=== PATIENT | male | born 1950 | race Caucasian/White ===

== ENCOUNTER → 2019-08-18 | Outpatient (CLI) | payer MEDICARE ==
--- NOTE | 2019-08-18 16:46 | KCIC ---
Study: MRI of the right hip without contrast INDICATION: Right hip pain. COMPARISON: None. TECHNIQUE: Multiplanar MR imaging of the right hip performed without the use of intravenous or intra-articular contrast. FINDINGS: Degraded study secondary to motion, particularly the axial T2 sequence. Bones/hip: No acute fracture or aggressive marrow signal abnormality. Incompletely evaluated discogenic arthrosis at L5-S1. Not well evaluated but suspected mild to moderate arthrosis at the pubic symphysis without obvious parasymphyseal edema. Suspected mild arthrosis at the sacroiliac joints. Dedicated imaging of the right hip is without advanced joint space narrowing or subchondral edema. Labrum/cartilage: Only seen on the large dyopr-mq-ptda sequence is extensive degenerative tearing of the left labrum. Less pronounced degenerative labral tearing on the right with scattered small paralabral cysts. Chondral loss at the superior aspect of the joint space with a personnel representative 4 mm chondral defect seen on image 13 series 7. Ligamentum teres: Not well evaluated due to motion. Greater trochanteric bursa: Edema signal along the right and left greater trochanteric bursa without fluid distention to suggest bursitis. Musculotendinous: Gluteus medius and minimus tendinosis and potential superimposed low-grade partial tearing. Bilateral common hamstring origin tendinosis. Low-grade partial tearing as well on the left more so than right, image 8 series 3. Intact iliopsoas and rectus femoris. Narrowing of the ischiofemoral space measuring approximately 6 mm on image 30 series 4 and there may be mild edema of the quadratus femoris which also exhibits fatty atrophy. Miscellaneous: Small bilateral hip effusions. No pericapsular edema. IMPRESSION: 1. No acute fracture. No advanced arthrosis at either hip. 2. Multifocal degenerative labral tearing on the right with a few associated paralabral cyst. More advanced degenerative labral tearing partially evaluated on the left. Chondral loss at the superior joint space on the right without subchondral edema. 3. Potential mild edema of the quadratus femoris which also exhibits fatty atrophy as it traverses through a narrowed ischiofemoral space measured at 6 mm. Recommend correlation for ischiofemoral impingement. 4. Small bilateral hip joint effusions without pericapsular edema or overt synovitis. 5. Additional chronic observations as above. Electronically signed by: SHYLA MANRIQUEZ MD (08/18/2019 4:43 PM) [id number]
== END | disposition home or self-care (01) ==
LOC: KCIC MRI 09:15
PROVIDERS: ATTEND Family Medicine
DX: S76.011A Strain of muscle, fascia and tendon of right hip, initial encounter (principal); S73.191A Other sprain of right hip, initial encounter; M25.452 Effusion, left hip; M25.451 Effusion, right hip; X58.XXXA Exposure to other specified factors, initial encounter; Y93.89 Activity, other specified; Y92.89 Other specified places as the place of occurrence of the external cause; Y99.8 Other external cause status
CPT/HCPCS: 73721

== ENCOUNTER → 2020-11-03 | Outpatient (CLI) | payer MEDICARE ==
[~2020-11-03] MED LIST: CARV6.2511 PO; CHOL-5 PO; CLOT15CR23 TP; ESOM20CA PO; LISI-517 PO; MAGN400C PO; PRED50TA PO
== END ==
LOC: LAB 10:23
PROVIDERS: ATTEND Surgery
DX: Z01.812 Encounter for preprocedural laboratory examination (principal); R51.9 Headache, unspecified; Z20.822 Contact with and (suspected) exposure to COVID-19
CPT/HCPCS: U0003

== ENCOUNTER 2020-11-08 09:14 | Day surgery (SDC) | payer MEDICARE ==
[~2020-11-08] VITALS: Ht 182.9 cm; Wt 106.0 kg
[~2020-11-08 09:14] MED LIST changes: +ACETAMINOPHEN 500 MG TABLET PO PRN; +BUPIVACAINE MPF 0.25% 30 ML VIAL. ONE; +HYDROmorphone 2 MG/ML VIAL IVP PRN; +IV RINGERS,LACTATED 1000ML 1,000 ML IV SCH; +MORPHINE SULFATE 2 MG/ML VIAL. IVP PRN; +PROCHLORPERAZINE 10 MG/2 ML VIAL. IVP PRN; +fentaNYL PF VIAL 100 MCG/2 ML VIAL IVP PRN
[2020-11-08] MEDS ORDERED: PROPOFOL 10 MG/ML (20ML) VIAL. IV ONE (10:27)
[2020-11-08] MEDS ORDERED: LIDOCAINE 2% PF 5 ML VIAL. ONE (10:27)
[2020-11-08] MEDS ORDERED: fentaNYL PF VIAL 100 MCG/2 ML VIAL ONE ×2 (10:27→12:17)
[2020-11-08] MEDS ORDERED: ONDANSETRON PF 4 MG/2 ML VIAL. ONE (10:58)
[2020-11-08] MEDS ORDERED: SEVOFLURANE 16 TO 30 MINUTES. IH ONE (10:59)
--- NOTE | 2020-11-08 11:22 | PDOC4 ---
Operative Note Operative Note Date: November 082020 at 1120 Preoperative diagnosis: Headache Postoperative diagnosis: Same Procedure: Right temporal artery biopsy Surgeon: Perez Specimen: Right temporal artery Dictation: Patient is a 69-year-old gentleman who has had severe headaches over the last several months. Procedure of temporal artery biopsy was explained to the patient detail was benefits were also discussed including bleeding infection alternatives to this procedure also discussed with patient who seemed to understand and gave a verbal written consent to have the procedure performed. Patient was taken to the operating room placed in the supine position IV sedation was initiated once patient was asleep and sedated his right temporal area was prepped and draped in usual sterile fashion was Betadine solution. An area over the temporal artery was injected with quarter percent Marcaine incision was made with 15 blade scalpel is carried down through the subcutaneous tissue using electrocautery right hemostasis the artery was visualized it was ligated proximally and distally and the specimen was removed and sent for pathology fresh. The wound was then closed in a single layer 4-0 subcuticular Monocryl Mastisol Steri-Strips and island dressing were applied. Patient tolerated procedure well was taken to recovery in stable condition all sponge instrument needle counts listed as correct estimated blood loss 10 mL ELIEZER JOHNSON MD Nov 08, 2020 11:22
--- NOTE | 2020-11-08 11:24 | DISCH ---
DISCHARGE INSTRUCTIONS Condition on Discharge Condition on Discharge: Stable Activity After Discharge Activity Instructions for Disc: No restrictions Diet after Discharge Diet after Discharge: Regular Wound Incision Care Other wound/incision instructi: May shower in 24 hours Contacting the after DC Call your doctor for: If your condition worsens Follow-Up Follow up with: Dr. Johnson in 2 weeks ELIEZER JOHNSON MD Nov 08, 2020 11:24
[2020-11-08 12:26] VITALS: BP 166/91
--- NOTE | 2020-11-13 14:07 | PATHOLOGY ---
[facility] Accession Number: [id number] . 01 Material submitted: . artery - RIGHT TEMPORAL ARTERY BIOPSY. Modifiers: right, temporal . 01 Clinical history: . PRE-OPERATIVE DIAGNOSIS - HEADACHE . 02 Diagnosis: Right temporal artery biopsy: - No significant pathologic abnormalities. (JPM:javier; 11/13/2020) S 11/13/2020 1145 Local . 02 Comment: There is no evidence of temporal arteritis. (JPM:javier; 11/13/2020) . 02 Electronically signed: . Darrin Huang MD, Pathologist NPI- [id number] . 01 Gross description: . The specimen is received in formalin, labeled with the patient's name and "right temporal artery biopsy" and consists of a rubbery segment of estrada tissue measuring 0.8 cm in length and 0.2 cm in diameter which is entirely submitted in A1.(SDY; 11/10/2020) SYU/SYU 11/10/2020 1045 Local . 02 Pathologist provided ICD-10: R51.9 . 02 CPT . 245027 Specimen Comment: A courtesy copy of this report has been sent to [phone] Specimen Comment: Report sent to Performed at: 01 [facility] [address], [place], [place] [id number] MD Eric Conner MD Phone: [phone] Performed at: [facility] [address] [place], [place] [id number] MD Darrin Huang MD Phone: [phone]
== END 2020-11-08 13:31 | disposition home or self-care (01) ==
LOC: SURG 09:14
PROVIDERS: ATTEND Surgery
DX: R51.9 Headache, unspecified (principal); E78.00 Pure hypercholesterolemia, unspecified; I10 Essential (primary) hypertension; K21.9 Gastro-esophageal reflux disease without esophagitis; M19.90 Unspecified osteoarthritis, unspecified site; Z85.828 Personal history of other malignant neoplasm of skin; Z79.899 Other long term (current) drug therapy; Z98.890 Other specified postprocedural states; Z87.891 Personal history of nicotine dependence; Z72.89 Other problems related to lifestyle; Z88.1 Allergy status to other antibiotic agents; Z88.8 Allergy status to other drugs, medicaments and biological substances
CPT/HCPCS: 37609; A4364; A4930; A6219; A6254; J0690; J2405; J2704; J3010; J3490; A4452

== ENCOUNTER → 2021-06-01 | Outpatient (CLI) | payer MEDICARE ==
[~2021-06-01] MED LIST changes: -ACETAMINOPHEN 500 MG TABLET PO PRN; -BUPIVACAINE MPF 0.25% 30 ML VIAL. ONE; -HYDROmorphone 2 MG/ML VIAL IVP PRN; -IV RINGERS,LACTATED 1000ML 1,000 ML IV SCH; -MORPHINE SULFATE 2 MG/ML VIAL. IVP PRN; -PROCHLORPERAZINE 10 MG/2 ML VIAL. IVP PRN; -fentaNYL PF VIAL 100 MCG/2 ML VIAL IVP PRN
--- NOTE | 2021-06-01 13:29 | CARD ---
MR#: [id number] Date of Study: 06/01/2021 Ordering Physician: KRZYSZTOF OLEA, Referring Physician: KRZYSZTOF OLEA, Tech: Fernanda Juarez [facility] APPROVED REPORT EXAM: Two-dimensional and M-mode echocardiogram with Doppler and color Doppler. Other Information Quality : AverageHR: 74bpm Rhythm : NSR INDICATION Dyspnea RISK FACTORS Hypertension Obesity 2D DIMENSIONS RVDd4.2 (2.9-3.5cm)IVSd1.2 (0.7-1.1cm) LVDd4.2 (3.9-5.9cm)PWd1.1 (0.7-1.1cm) IVSs1.5 (0.8-1.2cm)LVDs3.0 (2.5-4.0cm) FS (%) 28.7 %PWs1.4 (0.8-1.2cm) SV43.5 ml Aortic Valve AoV Peak Peña.125.0cm/sAoV VTI21.5cm AO Peak GR.6.3mmHgLVOT Peak Peña.89.0cm/s LVOT VTI 17.17cmAO Mean GR.3mmHg Mitral Valve MV E Tmzetdye83.1cm/sMV DECEL [id number] MV A Opmaejtc54.3cm/sMV [id number] E/A Ratio0.9MVA (PHT)3.39cm2 TDI E/Lateral E'6.9E/Medial E'5.6 Tricuspid Valve TR P. [id number]/sTR Peak Gr.13mmHg LEFT VENTRICLE The left ventricle is normal size. There is borderline concentric left ventricular hypertrophy. The l eft ventricular systolic function is normal. LV ejection fraction is 55 to 60%. There is normal LV s egmental wall motion. The left ventricular diastolic function and filling is normal for age. RIGHT VENTRICLE The right ventricle is normal size. There is normal right ventricular wall thickness. The right ventr icular systolic function is normal. ATRIA The left atrium size is normal. The right atrium size is normal. The interatrial septum is intact wit h no evidence for an atrial septal defect or patent foramen ovale as noted on 2-D or Doppler imaging. AORTIC VALVE The aortic valve is normal in structure and function. Doppler and Color Flow revealed no significant aortic regurgitation. There is no significant aortic valvular stenosis. MITRAL VALVE The mitral valve is normal in structure and function. There is no evidence of mitral valve prolapse. There is no mitral valve stenosis. Doppler and Color Flow revealed no mitral valve regurgitation note d. TRICUSPID VALVE The tricuspid valve is normal in structure and function. Doppler and Color Flow revealed trace tricus pid regurgitation. Estimated PAP 20 mmHg. There is no tricuspid valve stenosis. PULMONIC VALVE The pulmonary valve is normal in structure and function. Doppler and Color Flow revealed no pulmonic valvular regurgitation. GREAT VESSELS The aortic root is normal in size. The ascending aorta is normal in size. The IVC is normal in size a nd collapses >50% with inspiration. PERICARDIAL EFFUSION There is no evidence of significant pericardial effusion. Critical Notification Critical Value: No <Conclusion> The left ventricle is normal size. The left ventricular systolic function is normal. LV ejection fraction is 55 to 60%. There is borderline concentric left ventricular hypertrophy. Doppler and Color Flow revealed no significant aortic regurgitation. There is no significant aortic valvular stenosis. Doppler and Color Flow revealed no mitral valve regurgitation noted. Doppler and Color Flow revealed trace tricuspid regurgitation. Estimated PAP 20 mmHg. Signed by : Darian Russell MD Electronically Approved : 06/01/2021 13:28:36
== END ==
LOC: ECHO 09:35
PROVIDERS: ATTEND Family Medicine
DX: R06.00 Dyspnea, unspecified (principal); I10 Essential (primary) hypertension; E66.9 Obesity, unspecified; Z68.45 Body mass index [BMI] 70 or greater, adult
CPT/HCPCS: 93306